=== PATIENT | female | born 1955 | race Caucasian/White ===

== ENCOUNTER → 2016-12-27 | Outpatient (CLI) | payer MEDICAID ==
--- NOTE | 2016-12-29 07:03 | MM ---
Reason for exam: screening (asymptomatic). Last mammogram was performed 2 years and 2 months ago. History: Patient is postmenopausal, has history of other cancer at age 52, and had first child at age 32. Family history of breast cancer in paternal aunt at age 70. Benign excisional biopsy of the left breast, 1970. Physical Findings: A clinical breast exam by your physician is recommended on an annual basis and results should be correlated with mammographic findings. MG Screening Mammo w CAD Bilateral CC and MLO view(s) were taken. Prior study comparison: October 28, 2014, bilateral MG screening mammo w CAD. December 01, 2011, bilateral digital screening mammo w/CAD. There are scattered fibroglandular densities. No significant changes when compared with prior studies. ASSESSMENT: Negative, BI-RAD 1 RECOMMENDATION: Routine screening mammogram of both breasts in 1 year.
== END | disposition home or self-care (01) ==
LOC: RADMAMWWP 13:56
PROVIDERS: ATTEND Obstetrics & Gynecology
DX: Z12.31 Encounter for screening mammogram for malignant neoplasm of breast (principal)

== ENCOUNTER → 2018-03-15 | Outpatient (CLI) | payer MEDICAID ==
--- NOTE | 2018-03-19 09:02 | MM ---
Reason for exam: screening (asymptomatic). Last mammogram was performed 1 year and 3 months ago. History: Patient is postmenopausal, has history of other cancer at age 52, and had first child at age 32. Family history of breast cancer in paternal aunt at age 70. Benign excisional biopsy of the left breast, 1970. Physical Findings: A clinical breast exam by your physician is recommended on an annual basis and results should be correlated with mammographic findings. MG Screening Mammo w CAD Bilateral CC and MLO view(s) were taken. Prior study comparison: December 27, 2016, bilateral MG screening mammo w CAD. October 28, 2014, bilateral MG screening mammo w CAD. Finding: There is an equal density (isodense), indistinct irregular mass in the subareolar position of the right breast on CC view. New finding since December 27, 2016 and October 28, 2014. ASSESSMENT: Incomplete: need additional imaging evaluation, BI-RAD 0 RECOMMENDATION: Special view mammogram of the right breast. If lesion persists on supplemental views, image directed ultrasound is recommended. [facility] will attempt to contact patient to return for supplemental views and ultrasound if indicated.
== END | disposition home or self-care (01) ==
LOC: RADMAMWWP 13:11
PROVIDERS: ATTEND Obstetrics & Gynecology
DX: Z12.31 Encounter for screening mammogram for malignant neoplasm of breast (principal)
CPT/HCPCS: 77067

== ENCOUNTER → 2018-03-20 | Outpatient (CLI) | payer MEDICAID ==
--- NOTE | 2018-03-20 14:11 | MM ---
Reason for exam: additional evaluation requested from abnormal screening. Last mammogram was performed less than 1 month ago. History: Patient is postmenopausal, has history of other cancer at age 52, and had first child at age 32. Family history of breast cancer in paternal aunt at age 70. Benign excisional biopsy of the left breast, 1969. Physical Findings: Nurse Summary: 1cm nodule in the right breast at 9-10 o'clock (nurse kp). MG Work Up Mamm w CAD RT CC and MLO view(s) were taken of the right breast. Prior study comparison: March 15, 2018, bilateral MG screening mammo w CAD. December 27, 2016, bilateral MG screening mammo w CAD. There are scattered fibroglandular densities. There is a persistent 1.0cm retroareolar mass in the lower outer quadrant with calcifications. These results were verbally communicated with the patient and result sheet given to the patient on 03/20/18. ASSESSMENT: Incomplete: need additional imaging evaluation, BI-RAD 0 RECOMMENDATION: Ultrasound of the right breast. (lower outer quadrant and palpable)
--- NOTE | 2018-03-20 14:13 | USB ---
Reason for exam: additional evaluation requested from abnormal screening. History: Patient is postmenopausal, has history of other cancer at age 52, and had first child at age 32. Family history of breast cancer in paternal aunt at age 70. Benign excisional biopsy of the left breast, 1969. US Breast Workup Limited RT Right limited breast ultrasound including focal area of concern, retroareolar and axilla demonstrates a 0.3 x 0.3 x 0.2cm oval, lipoma, hyperechoic lesion at 9 o'clock and a 0.9 x 0.7 x 0.5cm oval, cystic, duct ectasia with calcification at posterior nipple, corresponds to mammographic finding, stable back to 2011. These results were verbally communicated with the patient and result sheet given to the patient on 03/20/18. ASSESSMENT: Benign, BI-RAD 2 RECOMMENDATION: Return to routine screening mammogram schedule for both breasts.
== END | disposition home or self-care (01) ==
LOC: RADMAMWWP 10:54
PROVIDERS: ATTEND Obstetrics & Gynecology
DX: R92.8 Other abnormal and inconclusive findings on diagnostic imaging of breast (principal)
CPT/HCPCS: 77065

== ENCOUNTER 2018-08-27 04:21 | Emergency (ER) | payer MEDICAID ==
[2018-08-27 04:33] VITALS: PULSE 88
--- NOTE | 2018-08-27 05:28 | ED ---
Extremity Problem HPI - General Chief complaint: Extremity Problem,Nontraumatic Stated complaint: Hip pain Time Seen by Provider: 08/27/18 04:25 Source: patient Mode of arrival: ambulatory Limitations: physical limitation - History of Present Illness Initial comments: 's patient is a 62-year-old woman who presents to be evaluated for left hip pain. She states that it came on around 8 PM. She states that she has had this intermittently going back 2 years but tonight it was much worse. The patient notes she had golfed yesterday, but does not recall a specific injury. She states the pain as moderate, but worse with movement. It is constant. She has not noted any relieving factors. She has not noted fever or chills, chest pain, palpitations, dyspnea. MD Complaint: extremity pain Onset/Timin -: hour(s) Location: left, lower extremity History of Same: Yes Quality: aching Consistency: constant Worsens with: walking Associated Symptoms: denies other symptoms - Related Data Previous Rx's Medication Instructions Recorded Hydrocodone/Acetaminophen [[place] 1 each PO Q6HR PRN #15 tab 08/27/18 5-325] predniSONE 60 mg PO DAILY #30 tab 08/27/18 Allergies Allergy/AdvReac Type Severity Reaction Status Date / Time No Known Allergies Allergy Verified 08/27/18 06:38 Review of Systems ROS Statement: Those systems with pertinent positive or pertinent negative responses have been documented in the HPI. ROS Other: All systems not noted in ROS Statement are negative. Constitutional: Denies: fever, chills Respiratory: Denies: cough, dyspnea Cardiovascular: Denies: chest pain, palpitations Gastrointestinal: Denies: abdominal pain Genitourinary: Denies: dysuria Musculoskeletal: Reports: arthralgia. Denies: back pain Skin: Denies: rash Neurological: Denies: weakness, numbness Past Medical History Past Medical History: No Reported History History of Any Multi-Drug Resistant Organisms: None Reported Past Surgical History: Cholecystectomy Additional Past Surgical History / Comment(s): D and C, left breast cyst Past Psychological History: No Psychological Hx Reported Smoking Status: Never smoker Past Alcohol Use History: None Reported Past Drug Use History: None Reported General Exam Limitations: physical limitation General appearance: alert Extremities exam: Present: normal inspection, other (Patient complains of pain to the anterior aspect of the left hip joint with passive range of motion. No evidence of infection, no warmth, erythema.). Absent: full ROM, pedal edema, calf tenderness Neurological exam: Present: alert. Absent: motor sensory deficit Skin exam: Present: warm, dry, intact, normal color Course Vital Signs 08/27/18 04:30 Temperature 97.9 F Pulse Rate 88 Respiratory 17 Rate Blood Pressure 174/100 O2 Sat by Pulse 99 Oximetry Disposition Clinical Impression: Arthralgia of hip, left Disposition: HOME SELF-CARE Condition: Fair Instructions (If sedation given, give patient instructions): Hip Pain (ED) Prescriptions: Hydrocodone/Acetaminophen [[place]rence 5-325] 1 each PO Q6HR PRN #15 tab PRN Reason: Pain predniSONE 60 mg PO DAILY #30 tab Is patient prescribed a controlled substance at d/c from ED?: Yes When asked, does pt state using other controlled substances?: No If prescribed controlled substance>3 days was MAPS reviewed?: Prescribed <3 Days If opioid is for acute pain is fill amount 7 days or less?: Yes If Rx opioid, was Start Talking consent form obtained?: Yes Referrals: Yi Osborne DO [Primary Care Provider] - 1-2 days Aman Manzanares MD [STAFF PHYSICIAN] - 1-2 days
--- NOTE | 2018-08-27 05:49 | XR ---
EXAM: XR Left Hip With Pelvis When Performed, 1 View CLINICAL HISTORY: Pain TECHNIQUE: Frontal view of the left hip, with pelvis when performed. COMPARISON: No relevant prior studies available. FINDINGS: There is joint space narrowing and osteophytosis in the left hip. No radiographic evidence of acute fracture or dislocation. IMPRESSION: Advanced osteoarthritic changes in the left hip. No radiographic evidence of acute fracture or dislocation. If symptoms persist, CT may further evaluate.
[2018-08-27] MEDS ORDERED: MORPHINE SULFATE 4 MG/ML SYRINGE IM STA (06:25)
[2018-08-27] MEDS ORDERED: KETOROLAC 60 MG/2 ML VIAL IM STA (06:25)
[2018-08-27] MEDS ORDERED: HYDROcodone/APAP 5-325MG 1 EACH TAB PO STA (07:13)
[2018-08-27] MEDS ORDERED: predniSONE 50 MG TAB PO STA (07:13)
[2018-08-27 07:29] VITALS: BP 156/80; RESP 18; TEMP 97.8
== END 2018-08-27 07:29 | disposition home or self-care (01) ==
LOC: EC 04:21
DX: M25.552 Pain in left hip (principal)
CPT/HCPCS: 73502; 99283; J2270; J1885; J7512

== ENCOUNTER → 2018-08-27 | Outpatient (CLI) | payer MEDICAID ==
--- NOTE | 2018-08-28 10:03 | MR ---
MR left hip without contrast HISTORY: Pain Multiplanar multisequence imaging obtained through the pelvis with small [id number] images through the left hip. Correlation to plain film dated 08/27/2017 There is osteoarthritic change. Joint space loss is present with marginal spurring. Some remodeling i s present at the femoral head. Medial aspect of the femoral head shows some increased signal on T2-we ighted sequences, low signal on T1-weighted sequences, there are subchondral geodes present within th e left femoral head and acetabulum at the posterior aspect. No evident fracture. No dislocation. Ther e is a joint effusion, loose bodies are present compatible with synovial osteochondromatosis. Possibl e ganglion cyst is present along the anterior aspect of the proximal femur, multilocular fluid signal is present measuring approximately 14 mm x 19 mm in greatest dimension anterior to the greater troch anter. Reactive marrow signal changes present in the femoral head and acetabulum. Suspect grade III c hondromalacia of the femoral head. There is increased signal present at the insertion of the gluteus tendons on the greater trochanter compatible with strain or partial tear which may be chronic. The ac etabular labrum is irregular, there may be a degenerative tear. Uterus and adnexal structures are unremarkable. No free fluid in the pelvis. No pelvic adenopathy. Cy stic foci associated with the left ovary are present, larger of the 2 measuring approximately 19 mm i n greatest dimension. IMPRESSION: Marked osteoarthritis. Synovial osteochondromatosis. Additional findings above. No eviden t hip fracture.
== END ==
LOC: RADMRIMAIN 16:03
PROVIDERS: ATTEND Orthopaedic Surgery
DX: M16.12 Unilateral primary osteoarthritis, left hip (principal); D48.0 Neoplasm of uncertain behavior of bone and articular cartilage

== ENCOUNTER → 2021-06-30 | Outpatient (CLI) | payer MEDICARE ==
--- NOTE | 2021-06-30 13:53 | BD ---
EXAMINATION TYPE: Axial Bone Density DATE OF EXAM: 06/30/2021 COMPARISON: NONE CLINICAL HISTORY: Height: 66 Weight: 250.8 FRAX RISK QUESTIONS: Alcohol (3 or more units per day): no Family History (Parent hip fracture): yes Glucocorticoids (More than 3mos): no (Ex: prednisone, prednisolone, methylprednisolone, dexamethasone, and hydrocortisone). History of Fracture in Adulthood: no Secondary Osteoporosis: 1. Type 1 Diabetes: no 2. Hyperthyroidism: no 3. Menopause before 45: no 4. Malnutrition: no 5. Chronic liver disease: no Rheumatoid Arthritis: no Current Tobacco Use: no RISK FACTORS HISTORY OF: Surgery to Spine/Hip(right/left)/Wrist (right/left): no Family History of Osteoporosis: no Active: no Diet low in dairy products/other sources of calcium: no Postmenopausal woman: yes Lost more than 2 inches in height since high school: no MEDICATIONS: lipitor Additional History: EXAM MEASUREMENTS: Bone mineral densitometry was performed using the [employer]. Bone mineral density as measured about the Lumbar spine is: ----- L1-L4(G/cm2): 1.529 T Score Values are as follows: ----- L2: 2.4 ----- L3: 3.7 ----- L4: 3.8 ----- L1-L4: 2.9 Bone mineral density has: increased 5.2 % since study of: 10.28.2014 Bone mineral density about the R hip (g/cm2): 1.056 Bone mineral density about the L hip (g/cm2): 1.287 T Score values are as follows: -----R Neck: 0.1 -----L Neck: 1.8 -----R Total: 0.9 -----L Total: 1.8 Bone mineral density has: decreased -2.7 % since study of: 10.28.2014 IMPRESSION: No evidence for osteoporosis or osteopenia. NOTE: T-SCORE=SD OF THE YOUNG ADULT MEAN.
--- NOTE | 2021-07-01 12:27 | MM ---
Reason for exam: screening (asymptomatic). Last mammogram was performed 3 years and 3 months ago. History: Patient is postmenopausal, has history of other cancer at age 52, and had first child at age 32. Family history of breast cancer in paternal aunt at age 70. Benign excisional biopsy of the left breast, 1970. Took hormonal contraceptives for 10 years. Physical Findings: A clinical breast exam by your physician is recommended on an annual basis and results should be correlated with mammographic findings. MG 3D Screening Mammo W/Cad Bilateral CC and MLO view(s) were taken. XCCL view(s) were taken of the right breast. Prior study comparison: March 20, 2018, right breast MG work up mamm w CAD RT. March 15, 2018, bilateral MG screening mammo w CAD. There are scattered fibroglandular densities. There are benign appearing round calcifications in the left breast. There is no discrete abnormality. ASSESSMENT: Benign, BI-RAD 2 RECOMMENDATION: Routine screening mammogram of both breasts in 1 year.
== END | disposition home or self-care (01) ==
LOC: RADMAMWWP 12:44
PROVIDERS: ATTEND Family Medicine
DX: Z12.31 Encounter for screening mammogram for malignant neoplasm of breast (principal); Z78.0 Asymptomatic menopausal state
CPT/HCPCS: 77063; 77067; 77080

== ENCOUNTER → 2022-11-04 | Outpatient (CLI) | payer MEDICARE ==
--- NOTE | 2022-11-07 08:59 | MM ---
Reason for Exam: Screening (asymptomatic). Last mammogram was performed 1 year(s) and 4 month(s) ago. Patient History: Menarche at age 13. First Full-Term at age 32. Late child-bearing (after 30). Postmenopausal. Other cancer, age 52. Patient used Hormonal Contraceptives for 10 years. 1970, Benign Excisional Biopsy on the left side. Paternal aunt had breast cancer, age 70. Risk Values: Vania 5 year model risk: 2.8%. NCI Lifetime model risk: 9.3%. Prior Study Comparison: 03/15/2018 Bilateral Screening Mammogram, [facility]. 03/20/2018 Right Diagnostic Mammogram, [facility]. 06/30/2021 Bilateral Screening Mammogram, [facility]. Tissue Density: There are scattered fibroglandular densities. Findings: Analyzed By CAD. There is no suspicious group of microcalcifications or new suspicious mass in either breast. Stable benign appearing nodule right breast. Overall Assessment: Benign, BI-RAD 2 Management: Screening Mammogram of both breasts in 1 year. . Patient should continue monthly self-breast exams. A clinical breast exam by your physician is recommended on an annual basis. This exam should not preclude additional follow-up of suspicious palpable abnormalities. Note on Vania scores and lifetime risk: 1. A Vania score greater than 3% is considered moderate risk. If this is the case, consider specialist referral to assess eligibility for a risk reducing agent. 2. If overall lifetime risk for the development of breast cancer is 20% or higher, the patient may qualify for future screening with alternating mammogram and breast MRI. Electronically signed and approved by: Dayo De La Vega M.D. Radiologis
== END | disposition home or self-care (01) ==
LOC: RADMAMWWP 11:48
PROVIDERS: ATTEND Family Medicine
DX: Z12.31 Encounter for screening mammogram for malignant neoplasm of breast (principal); Z78.0 Asymptomatic menopausal state; Z80.3 Family history of malignant neoplasm of breast
CPT/HCPCS: 77063; 77067

== ENCOUNTER → 2023-11-09 | Outpatient (CLI) | payer MEDICARE ==
--- NOTE | 2023-11-10 19:02 | MM ---
Reason for Exam: Screening (asymptomatic). Last screening mammogram was performed 12 month(s) ago. Patient History: Menarche at age 13. First Full-Term at age 32. Late child-bearing (after 30). Postmenopausal. Patient has history of breast feeding. Other cancer, age 52. Patient used Hormonal Contraceptives for 10 years. 1970, Benign Excisional Biopsy on the left side. Paternal aunt had breast cancer, age 70. Risk Values: Vania 5 year model risk: 2.8%. NCI Lifetime model risk: 8.9%. Prior Study Comparison: 12/27/2016 Bilateral Screening Mammogram, [facility]. 03/15/2018 Bilateral Screening Mammogram, [facility]. 03/20/2018 Right Diagnostic Mammogram, [facility]. 06/30/2021 Bilateral Screening Mammogram, [facility]. 11/04/2022 Bilateral MG 3D screening mammo w/cad, [facility]. Tissue Density: There are scattered areas of fibroglandular density. Findings: Analyzed By CAD. The pattern is symmetrical. Pattern appears stable. Focal asymmetries in the upper outer right breast No suspicious groups of microcalcifications, spiculated or lobular masses, architectural distortion or other secondary signs of malignancy are mammographically apparent. Overall Assessment: Benign, BI-RAD 2 Management: Screening Mammogram of both breasts in 1 year. A negative mammogram report should not preclude additional follow up of suspicious palpable abnormalities. Patient should continue monthly self breast exam. A clinical breast exam by your physician is recommended on an annual basis and results should be correlated with mammographic findings. Note on Vania scores and lifetime risk: 1. A Vania score greater than 3% is considered moderate risk. If this is the case, consider specialist referral to assess eligibility for a risk reducing agent. 2. If overall lifetime risk for the development of breast cancer is 20% or higher, the patient may qualify for future screening with alternating mammogram and breast MRI. Electronically signed and approved by: Flip Gallagher D.O. Radiologis
== END | disposition home or self-care (01) ==
LOC: RADMAMWWP 12:31
PROVIDERS: ATTEND Family Medicine
DX: Z12.31 Encounter for screening mammogram for malignant neoplasm of breast (principal); Z78.0 Asymptomatic menopausal state; Z80.3 Family history of malignant neoplasm of breast
CPT/HCPCS: 77063; 77067

== ENCOUNTER → 2024-12-06 | Outpatient (CLI) | payer MEDICARE ==
--- NOTE | 2024-12-09 07:39 | MM ---
Reason for Exam: Screening (asymptomatic). Last mammogram was performed 1 year(s) and 1 month(s) ago. Patient History: Menarche at age 13. First Full-Term at age 32. Late child-bearing (after 30). Postmenopausal. Patient has history of breast feeding. Other cancer, age 52. Patient used Hormonal Contraceptives for 10 years. 1970, Benign Excisional Biopsy on the left side. Paternal aunt had breast cancer, age 70. Risk Values: Vania 5 year model risk: 2.8%. NCI Lifetime model risk: 8.5%. Prior Study Comparison: 06/30/2021 Bilateral Screening Mammogram, [facility]. 11/04/2022 Bilateral MG 3D screening mammo w/cad, [facility]. 11/09/2023 Bilateral MG 3D screening mammo w/cad, [facility]. Tissue Density: There are scattered areas of fibroglandular density. Findings: Analyzed By CAD. Right breast: There is no suspicious group of microcalcifications or new suspicious mass. Left breast: There is no suspicious group of microcalcifications or new suspicious mass. Benign-appearing calcifications left breast. Overall Assessment: Benign, BI-RAD 2 Management: Screening Mammogram of both breasts in [address] [facility] will attempt to contact patient to return for supplemental views and ultrasound if indicated. Patient should continue monthly self-breast exams. A clinical breast exam by your physician is recommended on an annual basis. This exam should not preclude additional follow-up of suspicious palpable abnormalities. Note on Vania scores and lifetime risk: 1. A Vania score greater than 3% is considered moderate risk. If this is the case, consider specialist referral to assess eligibility for a risk reducing agent. 2. If overall lifetime risk for the development of breast cancer is 20% or higher, the patient may qualify for future screening with alternating mammogram and breast MRI. [facility], , 12/09/2024 7:36 AM. Electronically signed and approved by: Hira Ruiz DO
--- NOTE | 2024-12-09 08:06 | BD ---
EXAMINATION TYPE: Axial Bone Density DATE OF EXAM: 12/06/2024 CLINICAL HISTORY: 69 years old Female. ICD-10 CODE: Z78.0 POST MENOPAUSAL , Additional History: Height: 5 ft 5 in Weight: 253 FRAX RISK QUESTIONS: Alcohol (3 or more units per day): no Family History (Parent hip fracture): yes Glucocorticoids (More than 3mos): no (Ex: prednisone, prednisolone, methylprednisolone, dexamethasone, and hydrocortisone). History of Fracture in Adulthood: no Secondary Osteoporosis: 1. Type 1 Diabetes: no 2. Hyperthyroidism: no 3. Menopause before 45: no 4. Malnutrition: no 5. Chronic liver disease: no Rheumatoid Arthritis: no Current Tobacco Use: no RISK FACTORS HISTORY OF: Surgery to Spine/Hip(right/left)/Wrist (right/left): left hip replacement When: 2023 MEDICATIONS: Thyroid Medications: none Osteoporosis Medications: none EXAM MEASUREMENTS: Bone mineral densitometry was performed using the [employer] System. Bone mineral density as measured about the Lumbar spine is: ----- L1-L4(G/cm2): 1.571 T Score Values are as follows: ----- L1: 1.1 ----- L2: 2.5 ----- L3: 5.0 ----- L4: 3.9 ----- L1-L4: 3.3 Z Score Values are as follows: ----- L1: 1.6 ----- L2: 3.0 ----- L3: 5.5 ----- L4: 4.4 ----- L1-L4: 3.7 Bone mineral density has: increased 2.7 % since study of: 2021 Bone mineral density about the R hip (g/cm2): 1.157 T Score values are as follows: -----R Neck: 0.9 -----R Total: 1.2 Z Score values are as follows: -----R Neck: 1.7 -----R Total: 1.8 Bone mineral density has: increased 3.2 % since study of: 2021 FRAX%s: The graph provided illustrates a 8.5 % chance for a major osteoporotic fx and a 0.2 % chance for the hips probability for fx in 10 years time. IMPRESSION: Normal (Values between +1 and -1 indicate normal bone mass). Consider repeating this study in 5 year s or sooner if there is some new clinical indication. NOTE: T-SCORE=SD OF THE YOUNG ADULT MEAN. [facility], , 12/09/2024 8:04 AM
== END | disposition home or self-care (01) ==
LOC: RADMAMWWP 15:52
PROVIDERS: ATTEND Family Medicine
DX: Z12.31 Encounter for screening mammogram for malignant neoplasm of breast (principal); R92.1 Mammographic calcification found on diagnostic imaging of breast; R92.323 Mammographic fibroglandular density, bilateral breasts; Z80.3 Family history of malignant neoplasm of breast; Z78.0 Asymptomatic menopausal state; Z92.0 Personal history of contraception
CPT/HCPCS: 77063; 77067; 77080